=== PATIENT | male | born 1990 | race Two or more races ===

== ENCOUNTER 2021-08-19 04:18 | Inpatient (IN) | payer BC ==
[~2021-08-19] VITALS: Ht 182.9 cm; Wt 97.5 kg
--- NOTE | 2021-08-19 04:55 | NUR ---
SE RECIBE PTE ALERTA Y ORIENTADO X3 EL CUAL REFIERE VENIR POR DOLOR DE ABDOMEN EPIGASTRICO EL CUAL SE IRRADIA HACIA EL LADO DERECHO DESDE ESTRELLA. SE MIDEN S/V A PTE Y SE COLOCA EN OMER.
--- NOTE | 2021-08-19 05:19 | NUR ---
SE EDUCA A PTE SOBRE TX MEDICO CORONA REFIERE ENTENDER. SE JELANI MUESTRAS DE LABORATORIO UTILIZANDO MEDIDAS ASEPTICAS, SE COLOCA H/L A PTE Y SE ADMINISTRAN MEDICAMENTOS LOS CUALES TOLERA. SE NNOTIFICA ESTUDIO DE CT PO PENDIENTE A REALIZAR.
--- NOTE | 2021-08-19 07:26 | NUR ---
SE RECIBE PTE DEL TURNO ANTERIOR, ALERTA Y ORIENTADO EN MARISA RAÚL ESFERAS, UBICADO EN OMER NIVEL MAS BAJO, CHANDLER DE IDENTIFICACION Y BARANDAS ELEVADAS POR PRECAUCION, EN COMPANIA DE FAMILIAR. SE OBSERVA CON BUEN PATRON RESPIRATORIO. PIEL TIBIA AL TACTO. IV PATENTE Y ARNULFO DE EDEMA O ERITEMA CON 0.9% NSS @150ML/HR. PENDIENTE RESULTADOS DE LABORATORIO. PENDIENTE CT PO, PTE ORIENTADO SOBRE EL MISMO. SE MANTIENE BAJO OBSERVACION.
--- NOTE | 2021-08-19 07:36 | NUR ---
SE LE ADMINISTRA MEDICAMENTO PARA LAS NAUSEAS.SE MANTIENE BAJO OBSERVACION.
== END 2021-08-21 15:40 | disposition home or self-care (01) | DRG 343 ==
LOC: ER 04:18 → SEC-K 20:37 → O/R 08-20 17:42 → SURH 08-20 22:56
PROVIDERS: Surgery; ADMIT Internal Medicine; ATTEND Internal Medicine
PROC: BW21YZZ Computerized Tomography (CT Scan) of Abdomen and Pelvis using Other Contrast (ICD-10-PCS; 2021-08-19)
PROC: 0DTJ4ZZ Resection of Appendix, Percutaneous Endoscopic Approach (ICD-10-PCS; principal; 2021-08-20 14:00)
DX: K35.80 Unspecified acute appendicitis (principal); D72.829 Elevated white blood cell count, unspecified; R53.1 Weakness; R10.31 Right lower quadrant pain; R11.2 Nausea with vomiting, unspecified; R68.83 Chills (without fever); R63.0 Anorexia; Z20.822 Contact with and (suspected) exposure to COVID-19